=== PATIENT | female | born 1990 | race African-American/Black ===

== ENCOUNTER 2018-05-31 13:01 | Emergency (ER) | payer MEDICAID ==
[2018-05-31] MEDS ORDERED: Zofran 4 MG/2 ML VIAL IV ONE (13:48)
[2018-05-31] MEDS ORDERED: Sodium Chloride 0.9% 1000 ML 1,000 ML IV STA (13:48)
[2018-05-31] MEDS ORDERED: Hydromorphone 1 mg/ml Ampule IV ONE (13:51)
--- NOTE | 2018-05-31 13:51 | ERPHSYRPT ---
- History of Present Illness Time Seen by Provider: 05/31/18 13:50 Source: patient Exam Limitations: clinical condition Patient Subjective Stated Complaint: right sided flank pain, pain with urination Triage Nursing Assessment: Pt c/o of right sided flank pain that radiates to the right and left lower quadrant, pain with urination, pain began yesterday and has increased in severity today, rates pain 10/10, vitals wnl, appears to be in severe pain Physician History: PATIENT WITH A HISTORY OF TYPE 2 DIABETES AND PERIPHERAL NEUROPATHY COMPLAINS OF ACUTE ONSET OF RIGHT FLANK PAIN ASSOCIATED WITH DYSURIA AND FREQUENCY OF URINATION. PATIENT STATES THE PAIN RADIATES FROM THE FLANK INTO HER RIGHT LOWER ABDOMINAL. PATIENT ALSO COMPLAINS OF LEFT LOWER ABDOMINAL PAIN. DENIES ASSOCIATED NAUSEA, DIARRHEA, OR FEVER. Timing/Duration: yesterday Activites at Onset: none Quality: sharpness, stabbing Onset Location: RLQ, right flank Severity of Pain-Max: severe Severity of Pain-Current: severe Prior abdominal problems: none Sexual intercourse history: non-contributory Modifying Factors: Improves With: nothing, urinating Associated Symptoms: dysuria Allergies/Adverse Reactions: No Known Drug Allergies Allergy (Verified 05/31/18 13:34) Home Medications: Gabapentin 400 mg [Neurontin 400 MG] 400 mg PO TID 05/31/18 [History] Metformin HCl 500 mg [Glucophage 500 MG] 500 mg PO BIDWM 05/31/18 [History ] Pravastatin Sodium 10 mg PO DAILY 05/31/18 [History] - Review of Systems Constitutional: No Fever, No Chills Eyes: No Symptoms Ears, Nose, & Throat: No Symptoms Respiratory: No Symptoms, No Cough, No Dyspnea Cardiac: No Symptoms, No Chest Pain, No Edema, No Syncope Abdominal/Gastrointestinal: Abdominal Pain, No Nausea, No Vomiting, No Diarrhea Genitourinary Symptoms: Dysuria, Frequency, Flank Pain Musculoskeletal: No Symptoms, No Back Pain, No Neck Pain Skin: No Rash Neurological: No Dizziness, No Focal Weakness, No Sensory Changes Psychological: No Symptoms Endocrine: No Symptoms All Other Systems: Reviewed and Negative - Past Medical History Pertinent Past Medical History: Yes Neurological History: Peripheral Neuropathy, Stroke Respiratory History: Pneumonia Endocrine Medical History: Diabetes Type II Other Medical History: 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 she was - Past Surgical History Past Surgical History: No Other Surgical History: Merina implanted - Social History Smoking Status: Former smoker Exposure to second hand smoke: No Drug Use: none Patient Lives Alone: No - Female History Hx Last Menstrual Period: 05/11/2018 Hx Now: No - Nursing Vital Signs Nursing Vital Signs: Initial Vital Signs Temperature 98.2 F 05/31/18 13:20 Pulse Rate 75 05/31/18 13:20 Blood Pressure 129/81 05/31/18 13:20 O2 Sat by Pulse Oximetry 100 05/31/18 13:20 Pain Scale Pain Intensity 4 - Physical Exam General Appearance: moderate distress Eye Exam: PERRL/EOMI, eyes nml inspection Ears, Nose, Throat Exam: normal ENT inspection, TMs normal, pharynx normal, moist mucous membranes Neck Exam: normal inspection, non-tender, supple, full range of motion Respiratory Exam: normal breath sounds, lungs clear, No respiratory distress Cardiovascular Exam: regular rate/rhythm, normal heart sounds, normal peripheral pulses Gastrointestinal/Abdomen Exam: soft, normal bowel sounds, tenderness (THERE IS BILATERAL LOWER QUAD TENDERNESS), No mass Back Exam: normal inspection, normal range of motion, CVA tenderness (MARKED RIGHT CVA TENDERNESS), No vertebral tenderness Extremity Exam: normal inspection, normal range of motion, pelvis stable Neurologic Exam: alert, oriented x 3, cooperative, radiologist physician II-XII nml as tested, normal mood/affect, sensation nml, No motor deficits Skin Exam: normal color, warm, dry Lymphatic Exam: No adenopathy SpO2 Interpretation: normal SpO2: 100 - CT Exams Abdomen/Pelvis CT Interpretation: Tele-radiologist Report (NORMAL APPENDIX, NORMAL KIDNEY, NO HYDRONEPHROSIS, IUD IN UTERUS, BILATERAL OVARIAN CYST, 2.4CM ON RIGHT, 3.6CM ON LEFT) Ordered Tests: Active Orders 24 hr Category Date Time Status Clean Catch Urine Specimen STAT Care 05/31/18 13:48 Active IV Insertion STAT Care 05/31/18 13:48 Active ABDOMEN AND PELVIS W&WO CONTRA [CT] Stat Exams 05/31/18 13:57 Taken AMYLASE Stat Lab 05/31/18 14:04 Completed BMP Stat Lab 05/31/18 14:04 Completed CBC W DIFF Stat Lab 05/31/18 14:04 Completed HCG,QUALITATIVE URINE Stat Lab 05/31/18 14:53 Completed LIPASE Stat Lab 05/31/18 14:04 Completed UA W/RFX UR CULTURE Stat Lab 05/31/18 14:55 Completed Urine Triage Profile Stat Lab 05/31/18 14:55 Completed Medication Summary Discontinued Medications Generic Name Dose Route Start Last Admin Trade Name Sarika PRN Reason Stop Dose Admin Hydromorphone HCl 1 mg 05/31/18 13:51 05/31/18 14:06 Hydromorphone 1 Mg/Ml Ampule IV 05/31/18 13:52 1 mg STAT ONE Administration Hydromorphone HCl Confirm 05/31/18 14:05 Hydromorphone 1 Mg/Ml Ampule Administered 05/31/18 14:06 Dose 1 mg .ROUTE .STK-MED ONE Sodium Chloride 1,000 mls @ 999 mls/hr 05/31/18 13:48 05/31/18 15:53 Sodium Chloride 0.9% 1000 Ml IV 05/31/18 14:48 Infused .Q1H1M STA Infusion Sodium Chloride Confirm 05/31/18 14:05 Sodium Chloride 0.9% 1000 Ml Administered 05/31/18 14:06 Dose 1,000 mls @ ud .ROUTE .STK-MED ONE Ketorolac Tromethamine 30 mg 05/31/18 15:25 05/31/18 15:30 Toradol 30 Mg Injection IV 05/31/18 15:26 30 mg STAT ONE Administration Ketorolac Tromethamine Confirm 05/31/18 15:28 Toradol 30 Mg Injection Administered 05/31/18 15:29 Dose 30 mg .ROUTE .STK-MED ONE Morphine Sulfate 4 mg 05/31/18 16:34 05/31/18 16:45 Morphine Sulfate 4 Mg Inj IV 05/31/18 16:35 4 mg STAT ONE Administration Morphine Sulfate Confirm 05/31/18 16:37 Morphine Sulfate 4 Mg Inj Administered 05/31/18 16:38 Dose 4 mg .ROUTE .STK-MED ONE Ondansetron HCl 4 mg 05/31/18 13:48 05/31/18 14:06 Zofran 4 Mg/2 Ml Vial IV 05/31/18 13:49 4 mg STAT ONE Administration Ondansetron HCl Confirm 05/31/18 14:05 Zofran 4 Mg/2 Ml Vial Administered 05/31/18 14:06 Dose 4 mg .ROUTE .STK-MED ONE Lab/Rad Data: Laboratory Result Diagrams 05/31/18 14:04 05/31/18 14:04 Laboratory Results 05/31/18 05/31/18 05/31/18 Range/Units 14:55 14:55 14:53 WBC (4.0-10.5) K/mm3 RBC (4.1-5.4) M/mm3 Hgb (12.0-16.0) gm/dl Hct (35-47) % MCV (78-100) fl MCH (26-32) pg MCHC (32-36) g/dl RDW (11.5-14.0) % Plt Count (150-450) K/mm3 MPV (6-9.5) fl Gran % (36.0-66.0) % Eos # (Auto) (0-0.5) Absolute Lymphs (auto) (1.0-4.6) Absolute Monos (auto) (0.0-1.3) Lymphocytes % (24.0-44.0) % Monocytes % (0.0-12.0) % Eosinophils % (0.00-5.0) % Basophils % (0.0-0.4) % Absolute Granulocytes (1.4-6.9) Basophils # (0-0.4) Sodium (137-145) mmol/L Potassium (3.5-5.1) mmol/L Chloride (98-107) mmol/L Carbon Dioxide (22-30) mmol/L Anion Gap (5-15) MEQ/L BUN (7-17) mg/dL Creatinine (0.52-1.04) mg/dL Estimated GFR ML/MIN Glucose (74-106) mg/dL Calcium (8.4-10.2) mg/dL Amylase (30-110) U/L Lipase (23-300) U/L Urine Color STRAW (YELLOW) Urine Appearance CLEAR (CLEAR) Urine pH 9.0 (5-6) Ur Specific [place] 1.005 (1.005-1.025) Urine Protein NEGATIVE (Negative) Urine Ketones NEGATIVE (NEGATIVE) Urine Blood NEGATIVE (0-5) Ronnie/ul Urine Nitrite NEGATIVE (NEGATIVE) Urine Bilirubin NEGATIVE (NEGATIVE) Urine Urobilinogen NEGATIVE (0-1) mg/dL Ur Leukocyte Esterase NEGATIVE (NEGATIVE) Urine WBC (Auto) NONE (0-5) /HPF U Epithel Cells (Auto) NONE (FEW) /HPF Urine Culture Reflexed NO (NO) Urine Glucose NEGATIVE (NEGATIVE) mg/dL Urine HCG, Qual NEGATIVE (Negative) Urine Opiates Level NEGATIVE (NEGATIVE) Ur Methadone NEGATIVE (NEGATIVE) Urine Barbiturates NEGATIVE (NEGATIVE) Ur Phencyclidine (PCP) NEGATIVE (NEGATIVE) Urine Amphetamine NEGATIVE (NEGATIVE) U Benzodiazepine Level NEGATIVE (NEGATIVE) Urine Cocaine NEGATIVE (NEGATIVE) Urine Marijuana (THC) NEGATIVE (NEGATIVE) Slides for Path Review 05/31/18 05/31/18 Range/Units 14:04 14:04 WBC 6.2 (4.0-10.5) K/mm3 RBC 5.43 H (4.1-5.4) M/mm3 Hgb 12.6 (12.0-16.0) gm/dl Hct 38.4 (35-47) % MCV 70.7 L (78-100) fl MCH 23.2 L (26-32) pg MCHC 32.8 (32-36) g/dl RDW 14.2 H (11.5-14.0) % Plt Count 361 (150-450) K/mm3 MPV 9.1 (6-9.5) fl Gran % 50.2 (36.0-66.0) % Eos # (Auto) 0.11 (0-0.5) Absolute Lymphs (auto) 2.12 (1.0-4.6) Absolute Monos (auto) 0.81 (0.0-1.3) Lymphocytes % 34.4 (24.0-44.0) % Monocytes % 13.1 H (0.0-12.0) % Eosinophils % 1.8 (0.00-5.0) % Basophils % 0.5 (0.0-0.4) % Absolute Granulocytes 3.10 (1.4-6.9) Basophils # 0.03 (0-0.4) Sodium 139 (137-145) mmol/L Potassium 3.6 (3.5-5.1) mmol/L Chloride 106 (98-107) mmol/L Carbon Dioxide 22 (22-30) mmol/L Anion Gap 14.9 (5-15) MEQ/L BUN 6 L (7-17) mg/dL Creatinine 0.63 (0.52-1.04) mg/dL Estimated GFR > 60.0 ML/MIN Glucose 150 H (74-106) mg/dL Calcium 9.9 (8.4-10.2) mg/dL Amylase 89 (30-110) U/L Lipase 55 (23-300) U/L Urine Color (YELLOW) Urine Appearance (CLEAR) Urine pH (5-6) Ur Specific [place] (1.005-1.025) Urine Protein (Negative) Urine Ketones (NEGATIVE) Urine Blood (0-5) Ronnie/ul Urine Nitrite (NEGATIVE) Urine Bilirubin (NEGATIVE) Urine Urobilinogen (0-1) mg/dL Ur Leukocyte Esterase (NEGATIVE) Urine WBC (Auto) (0-5) /HPF U Epithel Cells (Auto) (FEW) /HPF Urine Culture Reflexed (NO) Urine Glucose (NEGATIVE) mg/dL Urine HCG, Qual (Negative) Urine Opiates Level (NEGATIVE) Ur Methadone (NEGATIVE) Urine Barbiturates (NEGATIVE) Ur Phencyclidine (PCP) (NEGATIVE) Urine Amphetamine (NEGATIVE) U Benzodiazepine Level (NEGATIVE) Urine Cocaine (NEGATIVE) Urine Marijuana (THC) (NEGATIVE) Slides for Path Review YES - Progress Progress Note: 05/31/18 14:07 IV NORMAL SALINE 1 LITER/HR, ZOFRAN 4MG, DILAUDID 1MG IV, TORADOL 30MG IV, FOLLOWED BY MORPHINE 4MG IV 05/31/18 16:37 - Departure Time of Disposition: 17:35 Departure Disposition: Home Clinical Impression: ACUTE RIGHT RENAL COLIC, BILATERAL OVARIAN CYST Condition: Stable Critical Care Time: No Referrals: DOCTOR,NO FAMILY [Primary Care Provider] - Additional Instructions: BEGIN TORADOL 10MG EVERY 6 HOURS FOR PAIN. NORCO 10/325 EVERY 6 HOURS FOR BREAKTHROUGH PAIN. STRAIN YOUR URINE FOR 4 DAYS. CONSULT YOUR PRIMARY CARE PROVIDER FOR FOLLOWUP IN 1 WEEK. RETURN TO EMERGENCY FOR INCREASING PAIN. AVOID TAKING METFORMIN FOR 48 HOURS. Prescriptions: Hydrocodone/APAP 10/325 mg [[place] 10/325 MG Tablet] 1 tab PO Q6H PRN PRN # 15 tablet MDD 4 PRN Reason: Pain Ketorolac Tromethamine [Toradol] 10 mg PO Q6H PRN PRN #20 tablet PRN Reason: Pain
[2018-05-31] MEDS ORDERED: Hydromorphone 1 mg/ml Ampule ONE (14:05)
[2018-05-31] MEDS ORDERED: Sodium Chloride 0.9% 1000 ML 1,000 ML ONE (14:05)
[2018-05-31] MEDS ORDERED: Zofran 4 MG/2 ML VIAL ONE (14:05)
[2018-05-31 14:14] LABS: BASOPHIL % 0.5 % (0.0-0.4); Basophil (Absolute #) 0.03 (0-0.4); Eosinophil % 1.8 % (0.00-5.0); Eosinophil (Absolute #) 0.11 (0-0.5); Granulocytes % 50.2 % (36.0-66.0); Hematocrit 38.4 % (35-47); Hemoglobin 12.6 gm/dl (12.0-16.0); Lymphocyte (Absolute #) 2.12 (1.0-4.6); Lymphocytes % 34.4 % (24.0-44.0); Mean Cell Volume 70.7 fl (78-100); Mean Corpuscular Hemoglobin 23.2 pg (26-32); Mean Corpuscular Hgb Concent. 32.8 g/dl (32-36); Mean Platelet Volume 9.1 fl (6-9.5); Monocyte (Absolute #) 0.81 (0.0-1.3); Monocytes % 13.1 % (0.0-12.0); Platelet Count 361 K/mm3 (150-450); Red Blood Count 5.43 M/mm3 (4.1-5.4); Red Cell Distribution Width 14.2 % (11.5-14.0); White Blood Count 6.2 K/mm3 (4.0-10.5)
[2018-05-31 14:16] LABS: AMYLASE 89 U/L (30-110); ANION GAP 14.9 MEQ/L (5-15); BLOOD UREA NITROGEN 6 mg/dL (7-17); CHLORIDE 106 mmol/L (98-107); Calcium 9.9 mg/dL (8.4-10.2); Carbon Dioxide 22 mmol/L (22-30); Creatinine 1 0.63 mg/dL (0.52-1.04); Glucose 150 mg/dL (74-106); LIPASE 55 U/L (23-300); Potassium 3.6 mmol/L (3.5-5.1); SODIUM 139 mmol/L (137-145)
[2018-05-31 15:13] LABS: Appearance CLEAR (CLEAR); Bilirubin NEGATIVE (NEGATIVE); Blood NEGATIVE Ery/ul (0-5); Glucose NEGATIVE (NEGATIVE); Ketones NEGATIVE (NEGATIVE); Leukocyte Esterase NEGATIVE (NEGATIVE); Nitrite NEGATIVE (NEGATIVE); Protein,Urine Dip NEGATIVE (Negative); Specific Gravity 1.005 (1.005-1.025); Urobilinogen NEGATIVE mg/dL (0-1)
[2018-05-31 15:25] LABS: Slide Review 1 YES
[2018-05-31] MEDS ORDERED: TORAdol 30 mg Injection IV ONE (15:25)
[2018-05-31] MEDS ORDERED: TORAdol 30 mg Injection ONE (15:28)
[2018-05-31 15:30] LABS: Amphetamine,Urine NEGATIVE (NEGATIVE); Barbiturate,Urine NEGATIVE (NEGATIVE); Benzodiazepine,Urine NEGATIVE (NEGATIVE); Cocaine,Urine NEGATIVE (NEGATIVE); Methadone,Urine NEGATIVE (NEGATIVE); Opiate,Urine NEGATIVE (NEGATIVE); PCP,Urine NEGATIVE (NEGATIVE); THC,Urine NEGATIVE (NEGATIVE)
[2018-05-31] MEDS ORDERED: MORPHINE SULFATE 4 MG INJ IV ONE (16:34)
[2018-05-31] MEDS ORDERED: MORPHINE SULFATE 4 MG INJ ONE (16:37)
[2018-05-31 17:28] VITALS: BP 122/76; PULSE 70
[2018-05-31 17:39] VITALS: O2SAT 100
--- NOTE | 2018-05-31 20:04 | XRAY ---
Indication: Right abdomen pain. Multiple contiguous axial images through the abdomen and pelvis prior to and following 80 cc Isovue-370 contrast only. Comparison: None Lung bases are clear. Heart is not enlarged. Noncontrasted images are negative for pathologic visceral calcification/calculi. Noncontrasted stomach and bowel loops appear nonobstructed. Normal appendix. Mild diffuse fluid distended colon favoring diarrhea. Postcontrast images demonstrates normal visceral enhancement and renal excretion. Uterus is enlarged with 3 cm fundal fibroid and IUD in situ. Also enlarged ovaries with 3.4 cm left ovary cyst and 2.5 cm right ovary cyst. No free fluid/air. Remaining liver, gallbladder, pancreas, spleen, adrenal glands, kidneys, ureters, bladder, and aorta appear unremarkable. No pathologic retroperitoneal lymphadenopathy. Osseous structures intact. Small fatty umbilical hernia. Impression: 1. Negative visceral calcification/calculi. 2. Fluid distended colon favoring diarrhea. 3. Prominent uterus with fundal fibroid and IUD. Also enlarged ovaries with bilateral renal cysts. Pelvic sonogram may yield further information. 4. Small fatty umbilical hernia. Comment: Preliminary interpretation was made by [facility]. No critical discrepancy. CTDI 16.22
== END 2018-05-31 17:55 | disposition home or self-care (01) ==
LOC: ED 13:01
DX: N83.202 Unspecified ovarian cyst, left side (principal); N83.201 Unspecified ovarian cyst, right side; E11.9 Type 2 diabetes mellitus without complications; Z79.4 Long term (current) use of insulin; Z79.899 Other long term (current) drug therapy; G62.9 Polyneuropathy, unspecified; Z86.73 Personal history of transient ischemic attack (TIA), and cerebral infarction without residual deficits
CPT/HCPCS: 36000; 36415; 74178; 80048; 80307; 81001; 82150; 83690; 84703; 85025; 96360; 96374; 96375; 99284; J1170; J1885; J2270; J2405